=== PATIENT | female | born 1950 | race Caucasian/White ===

== ENCOUNTER → 2017-10-21 15:14 | Outpatient (CLI) | payer MEDICARE, OTHER, SELFPAY ==
--- NOTE | 2017-10-21 15:18 | XR_ITS ---
XR DEXA SCAN.-BONE DENSITY STUDY HIPS AND LUMBAR SPINE HISTORY: Postmenopausal [id number] female low calcium intake TECHNIQUE: DEXA scan hip and lumbar spine The most complete data summary and color graphic presentation of the today's ( and any prior ) DEXA findings are available in PACS. Definition and treatment guidelines included. COMPARISON: None listed LUMBAR SPINE: Normal bone density overall and at all levels L1 vertebral body demonstrates the lowest T score 0.8 with BMD1.228 g/cm sq Overall mean lumbar L1-L4 T score 2.2 with BMD1.442 g/cm sq . HIPS: Femoral neck density is best predictor of hip fracture risk . Left femoral neck demonstrates the lowest T score -1.3 with BMD0.86 g/cm sq . Right femoral neck T score is - 0.3 with BMD 0.992 Averaging all regions yields today's overall Hip Mean T score 0.8 with BMD1.114 g/cm sq ... IMPRESSION 1. LUMBAR SPINE: Normal density Normal bone density overall lumbar spine , as well as normal density at each individual vertebral body level 2. HIPS:-- Normal Overall normal bone density at hips as well as Normal bone density at femoral necks WHO criteria for post-menopausal, Women: Normal: T-score at or above -1 SD Osteopenia: T-score between -1 and -2.5 SD Osteoporosis: T-score at or below -2.5 SD
--- NOTE | 2017-10-21 15:18 | MM_ITS ---
MM Dig screening mamm BI w/CAD CAD Screening COMPARISON: None, we have been waiting for outside films from [facility] to arrive and if and when they do an addendum can be dictated INDICATION: There is no personal or family history of breast cancer TECHNIQUE: Standard CC and MLO images were obtained. R2 CAD reviewed. FINDINGS: Scattered fibroglandular densities are seen in the central portions of both breasts on a background of fatty breast parenchyma. There are couple benign-appearing calcifications in each breast. There is no suspicious lesion and no suspicious microcalcifications. IMPRESSION: Mild to moderate breast density with no suspicious lesion seen BI-RADS Category: 2 Benign Finding(s) RECOMMENDED FOLLOW-UP: 1YR - 1 YEAR FOLLOW-UP (A letter has been sent to the patient regarding results of the study.)
== END ==
PROVIDERS: Family Provider Radiology Diagnostic Radiology; PCP Family Medicine; Visit Provider Family Medicine
DX: Z12.31 Encounter for screening mammogram for malignant neoplasm of breast (principal); N60.19 Diffuse cystic mastopathy of unspecified breast; Z13.820 Encounter for screening for osteoporosis; M85.89 Other specified disorders of bone density and structure, multiple sites
CPT/HCPCS: 77067; 77080

== ENCOUNTER → 2018-07-15 07:16 | Outpatient (CLI) | payer MEDICARE, OTHER, SELFPAY ==
[2018-07-15 08:09] LABS: Cholesterol 239 mg/dL (140-200); HDL Cholesterol 121 mg/dL (29-89); LDL Cholesterol 103 mg/dL (0-130); Thyroid Stimulating Hormone 4.24 uIU/ml (0.358-3.740); Triglycerides 76 mg/dL (30-200); VLDL Cholesterol 15 mg/dL (0-40)
[2018-07-16 21:45] LABS: Vitamin B12 625 pg/mL (232-1245)
== END ==
PROVIDERS: Visit Provider Physician Assistant
DX: E78.5 Hyperlipidemia, unspecified (principal); E03.9 Hypothyroidism, unspecified; E53.8 Deficiency of other specified B group vitamins
CPT/HCPCS: 36415; 80061; 82607; 84443

== ENCOUNTER → 2018-09-20 07:30 | Outpatient (CLI) | payer MEDICARE, OTHER, SELFPAY ==
[2018-09-20 08:47] LABS: Thyroid Stimulating Hormone 3.17 uIU/ml (0.358-3.740)
== END ==
PROVIDERS: Visit Provider Physician Assistant
DX: E03.9 Hypothyroidism, unspecified (principal)
CPT/HCPCS: 36415; 84439; 84443

== ENCOUNTER → 2020-04-01 14:39 | Outpatient (CLI) | payer MEDICARE, OTHER, SELFPAY ==
--- NOTE | 2020-04-01 14:45 | XR_ITS ---
PROCEDURE: XR DEXA AXIAL SKELETON CLINICAL HISTORY: POSTMENOPAUSAL COMPARISON: LILO,TRUONG DEXAAX XR DEXA axial skeleton from 10/21/2017 FINDINGS: The right hip BMD is 0.833 with a T-score of -0.1. The left hip BMD is 0.795 with a T-score of -0.5. The lumbar spine BMD is 1.165 with a T-score of 1.1. The the patient was considered osteopenic with a T-score of -1.3 in the left femoral neck. Bone marrow density has improved. IMPRESSION: This patient is considered normal according to the World Health Organization criteria. Fracture risk is low. Based on these results a follow-up exam is recommended in 2 year. Dictated by: Chuy Harper MD 04/02/2020 11:34 Chuy Harper MD in [place] 04/02/2020 11:34
--- NOTE | 2020-04-01 14:45 | MM_ITS ---
PROCEDURE: MM DIG SCREENING MAMM BI W/CAD Digital Breast Tomosynthesis Included CLINICAL INDICATION: SCREENING There is no personal or family history of breast cancer. COMPARISON: MG [facility] MM Dig screening mamm BI w/CAD from 10/21/2017 TECHNIQUE: Standard CC and MLO images and 3D Tomosynthesis was obtained. R2 CAD reviewed. FINDINGS: There are couple of benign-appearing microcalcifications in each breast. There is a small benign-appearing nodular density just deep to the nipple left breast. There is a similar stable benign-appearing nodular density outer quadrant left breast and a similar appearing stable benign-appearing nodular density near the axillary tail right breast. There are couple of benign-appearing microcalcifications in each breast. There is no suspicious lesion and no suspicious microcalcifications. IMPRESSION: Fibrofatty parenchyma with no suspicious lesions seen BI-RAD Category: 2 Benign Finding(s) FOLLOW-UP: 1YR 1 Year Follow-up (A letter has been sent to the patient regarding results of the study.) Dictated by: Dr. Adolph Enciso MD 04/04/2020 08:38 Dr. Adolph Enciso MD in [place] 04/04/2020 08:38
== END ==
PROVIDERS: PCP Family Medicine; Visit Provider Physician Assistant
DX: Z12.31 Encounter for screening mammogram for malignant neoplasm of breast (principal); Z78.0 Asymptomatic menopausal state
CPT/HCPCS: 77063; 77067; 77080

== ENCOUNTER → 2021-07-16 09:53 | Outpatient (CLI) | payer MEDICARE, OTHER, SELFPAY ==
--- NOTE | 2021-07-16 09:57 | XR_ITS ---
PROCEDURE: XR CHEST PORTABLE CLINICAL HISTORY: COVID OUTPATIENT COMPARISON: No exams were available for comparison FINDINGS: The cardiomediastinal silhouette and pulmonary vascularity are within normal limits. The lungs are clear without infiltrates, suspicious nodules, or pleural effusions. No acute bony abnormalities. IMPRESSION: No acute findings. Dictated by: Chuy Harper MD 07/16/2021 11:11 Chuy Harper MD in [place] 07/16/2021 11:11
[2021-07-16 10:27] LABS: Adenovirus,PCR Not Detected (NotDetected); Bordetella Pertussis Not Detected (NotDetected); Chlamydophila Pneumoniae, PCR Not Detected (NotDetected); Coronavirus 19, PCR Not Detected (NotDetected); Coronavirus 229E Not Detected (NotDetected); Coronavirus NL63 Not Detected (NotDetected); Coronavirus OC43 Not Detected (NotDetected); Coronovirus HKU1,PCR Not Detected (NotDetected); Human Metapneumovirus Not Detected (NotDetected); Influenza A, PCR Not Detected (NotDetected); Influenza AH1, 2009 Not Detected (NotDetected); Influenza AH1, PCR Not Detected (NotDetected); Influenza AH3,PCR Not Detected (NotDetected); Influenza B, PCR Not Detected (NotDetected); Mycoplasma Pneumoniae, PCR Not Detected (NotDetected); Parainfluenza 1, PCR Not Detected (NotDetected); Parainfluenza 2, PCR Not Detected (NotDetected); Parainfluenza 3, PCR Not Detected (NotDetected); Parainfluenza 4, PCR Not Detected (NotDetected); Respiratory Syncytial Virus Not Detected (NotDetected); Rhinovirus/Enterovirus Not Detected (NotDetected)
[2021-07-16 10:32] LABS: Basophils # 0.2 K/mm3 (0-0.2); Basophils % 1.5 % (0.1-2.0); Eosinophils # 0.3 K/mm3 (0.0-0.4); Eosinophils % 2.8 % (0.1-12.0); Hematocrit 42.5 % (37.0-47.0); Hemoglobin 12.9 g/dL (12.2-16.2); Lymphocytes # 1.6 K/mm3 (0.7-4.5); Lymphocytes % 15.9 % (10-50); Mean Corpuscular HGB Conc 30.2 g/dL (31.8-35.4); Mean Corpuscular Volume 82.8 fl (81-99); Mean Platelet Volume 9.8 fl (7.4-10.4); Monocytes # 0.3 K/mm3 (0.1-1.0); Monocytes % 3.4 % (1.7-9.3); Neutrophils # 7.8 K/mm3 (1.8-7.8); Neutrophils % 76.4 % (37.0-80.0); Platelet Count 470 K/mm3 (142-424); Red Blood Count 5.14 M/mm3 (4.20-5.40); Red Cell Distribution Width 18.9 % (11.5-17.5); White Blood Count 10.2 K/mm3 (4.8-10.8)
== END ==
PROVIDERS: PCP Family Medicine; Visit Provider Physician Assistant
DX: Z20.822 Contact with and (suspected) exposure to COVID-19 (principal)
CPT/HCPCS: 36415; 71045; 85025; 87581; 87632; 87798; C9803; U0003; U0005

== ENCOUNTER 2021-07-21 07:36 | Emergency (ER) | payer MEDICARE, OTHER, SELFPAY ==
--- NOTE | 2021-07-21 07:36 | ECG_ITS ---
APPROVED REPORT Exam: Resting ECG HR:78 bpm ECG Measurements Heart Rate 78 AXES VT 158 P 55 QRSd 88 QRS 42 QT 384 T 63 QTc 437 Conclusion Sinus rhythm with occasional premature ventricular complexes Left atrial abnormality Borderline ECG Electronically signed by : Eulogio Allen MD 07/24/2021 14:37:01
[2021-07-21 07:42] VITALS: BP 169/90; PULSE 87; RESP 13; TEMP 36.9; O2SAT 97; BMI 36.6
--- NOTE | 2021-07-21 07:43 | XR_ITS ---
FINAL REPORT CLINICAL HISTORY: CP, cough FINDINGS: SINGLE VIEW CHEST. The heart is normal in size. The mediastinum is unremarkable. The lungs are a little underinflated. There is chronic scarring at the lung bases. There is no pneumothorax. IMPRESSION: No acute process. Reviewed, Interpreted and Dictated by Wilberto Mi MD Transcribed by Merissa Mcdonnell Authenticated by Wilberto Mi MD on 07/21/2021 08:46:37 AM [facility]
--- NOTE | 2021-07-21 07:48 | HMH.EDCP ---
ED Disposition Clinical Impression: Chest pain, URI (upper respiratory infection) Disposition: Home, Self-Care Condition on Discharge: Good Referrals: Jorge Mcgregor MD [Primary Care Provider] - - Critical Care Critical Care Time: No Attestation: On , the high probability of a clinically significant, sudden or life threatening deterioration of the following system(s) required my full and direct attention, intervention and personal management. The time I documented below is in addition to time spent performing reported procedures but includes the following listed in this critical care notation. Medical Decision Making - Maximino Inquiry Pt receiving controlled substance: No Vital Signs: 07/21/21 07:42 Temperature 98.4 F Temperature Source Oral Pulse Rate [Right Radial] 87 Respiratory Rate 13 Blood Pressure [Right Arm] 169/90 H Blood Pressure Mean [Right Arm] 116 Blood Pressure Source [Right Arm] Automatic Cuff Blood Pressure Position [Right Arm] Sitting 02 Sat by Pulse Oximetry 97 Oxygen Delivery Method Room Air - Lab Data Lab Results 07/21/21 07:40: WBC 8.9, RBC 5.15, Hgb 13.0, Hct 43.4, MCV 84.3, MCH 25.3 L, MCHC 30.0 L, RDW 18.9 H, Plt Count 448 H, MPV 10.7 H, Neut % (Auto) 75.0, Lymph % (Auto) 14.3, [place] % (Auto) 5.2, Eos % (Auto) 2.9, Baso % (Auto) 2.5 H, Neut # (Auto) 6.7, Lymph # (Auto) 1.3, [place] # (Auto) 0.5, Eos # (Auto) 0.3, Baso # (Auto) 0.2 07/21/21 07:40: Sodium 135 L, Potassium 3.7, Chloride 102, Carbon Dioxide 28, Anion Gap 8.7, BUN 11, Creatinine 0.70, Estimated Creat Clear 75, Estimated GFR 83, Est GFR ( Amer) 100, Glucose 188 H, Calcium 8.9, Troponin I < 0.01 07/21/21 07:40: SARS-CoV-2 (PCR) Not detected, Influenza A Untype (PCR) Not detected, Influenza Type B (PCR) Not detected Result diagrams: 07/21/21 07:40 07/21/21 07:40 Orders (Tests/Meds): ORDERS Category Date Time Status XR chest portable Stat Exams 07/21/21 07:43 Taken Troponin I Q3H Lab 07/21/21 10:45 Ordered Troponin I Q3H Lab 07/21/21 13:45 Ordered Medical Decision Narrative: 71 yo female w/ cad w/ cardiac stents, polycythemia vera, htn, presents for chest pain. Currently chest pain free in ED. States the chest pain mostly comes on with coughing, which has been occurring frequently for over 1 week, associated with fatigue, with recent close covid contacts. She looks well, is in NAD, on room air, afebrile. DDx includes but not limited URI, ACS, bronchitis, pneumonia. Will obtain labs including cbc, cmp, troponin, rapid covid/flu. EKG shows NSR without STEMI. Labs not acutely actionable, trop wnl. CXR ordered. No focal opacity seen on CXR. Patient only with mild similar chest pain with coughing here in ED. Chest pain completely resolves when she is not coughing, per self report. Remains HDS, well appearing, on room air. Stable for discharge. Given ED return precautions. Chest Pain HPI - General Stated Complaint: CP Time Seen by Provider: 07/21/21 07:48 Source of Information: Patient Limitations: No Limitations - History of Present Illness HPI narrative: 71 yo female w/ hx HTN, HLD, CAD s/p PCI on ASA, polycythemia vera, presents for chest pain. Patient reports she has bilateral upper chest pain that worsens when she coughs. States she has had nonproductive cough, fatigue since 07/13 for which she was evaluated in [facility] on 07/16. She states she tested negative for covid 19 and had negative CXR at that time (chart review shows negative comprehensive respiratory panel and negative CXR). She did not have chest pain at the time of that initial evaluations. States her symptoms improved over this past weekend but her cough returned and then she developed the chest pain for which she came into the ED today for. She states it only occurs when she coughs. She states she is concerned because she has cardiac issues and wants to make sure they are not the cause of her chest pain. She also notices so upper back pain when she c
[2021-07-21 07:52] LABS: Coronavirus 19, PCR Not Detected (NotDetected); Influenza A, PCR Not Detected (NotDetected); Influenza B, PCR Not Detected (NotDetected)
[2021-07-21 07:57] LABS: Basophils # 0.2 K/mm3 (0-0.2); Basophils % 2.5 % (0.1-2.0); Eosinophils # 0.3 K/mm3 (0.0-0.4); Eosinophils % 2.9 % (0.1-12.0); Hematocrit 43.4 % (37.0-47.0); Lymphocytes # 1.3 K/mm3 (0.7-4.5); Lymphocytes % 14.3 % (10-50); Mean Corpuscular Hemoglobin 25.3 pg (27.0-31.2); Mean Corpuscular Volume 84.3 fl (81-99); Mean Platelet Volume 10.7 fl (7.4-10.4); Monocytes # 0.5 K/mm3 (0.1-1.0); Monocytes % 5.2 % (1.7-9.3); Neutrophils # 6.7 K/mm3 (1.8-7.8); Platelet Count 448 K/mm3 (142-424); Red Blood Count 5.15 M/mm3 (4.20-5.40); Red Cell Distribution Width 18.9 % (11.5-17.5); White Blood Count 8.9 K/mm3 (4.8-10.8)
[2021-07-21 08:06] LABS: Anion Gap 8.7 mEq/L (5-15); Blood Urea Nitrogen 11 mg/dl (7-17); Calcium 8.9 mg/dl (8.4-10.2); Carbon Dioxide 28 mmol/L (22.0-30.0); Chloride 102 mmol/L (98-107); Creatinine Clearance Estimated 75 mL/min (50-200); Estimated Glomerular Filt Rate 83 ml/min (>60); GFR (African American) 100 ML/MIN (>60); Glucose 188 mg/dl (74-100); Potassium 3.7 mmoL/L (3.5-5.1); Sodium 135 mmol/L (136-145)
[2021-07-21 08:22] LABS: Troponin I < 0.01 ng/ml (0.00-0.034)
[2021-07-21 08:35] VITALS: BP 162/95; PULSE 79; RESP 18; TEMP 36.8; O2SAT 98
== END 2021-07-21 08:37 | disposition home or self-care (01) ==
PROVIDERS: Emergency Provider Student in an Organized Health Care Education/Training Program; PCP Family Medicine
DX: R07.9 Chest pain, unspecified (principal); J06.9 Acute upper respiratory infection, unspecified; I10 Essential (primary) hypertension; E78.5 Hyperlipidemia, unspecified; Z20.822 Contact with and (suspected) exposure to COVID-19
CPT/HCPCS: 71045; 80048; 84484; 85025; 93005; 99283; C9803; U0003; U0005

== ENCOUNTER → 2021-09-01 09:38 | Outpatient (CLI) | payer MEDICARE, OTHER, SELFPAY ==
--- NOTE | 2021-09-01 09:48 | XR_ITS ---
FINAL REPORT CLINICAL HISTORY: ABN CXR per patient. coughing since jul poss covid but never tested positive. COMPARISON: July 21, 2021 FINDINGS: Two views of the chest were obtained. The heart size and pulmonary vascularity are within normal limits. The mediastinum is normal. No acute pulmonary abnormality is identified. There is no pneumothorax. The bony thorax is intact. IMPRESSION: No active cardiopulmonary disease. Reviewed, Interpreted and Dictated by Topher Pendleton III, MD Transcribed by Lopez Wilson Authenticated by Topher Pendleton III, MD on 09/01/2021 11:31:57 AM [facility]
== END ==
PROVIDERS: PCP Family Medicine; Visit Provider Physician Assistant
DX: R93.89 Abnormal findings on diagnostic imaging of other specified body structures (principal)
CPT/HCPCS: 71046

== ENCOUNTER → 2021-12-09 13:09 | Outpatient (CLI) | payer MEDICARE, OTHER, SELFPAY ==
--- NOTE | 2021-12-09 13:14 | XR_ITS ---
FINAL REPORT CLINICAL HISTORY: foot pain FINDINGS: AP, oblique and lateral weight-bearing views of the left foot were obtained. There is no prior exam for comparison. There is no acute fracture or dislocation. There is mild multi joint degenerative disease most pronounced at the 1st MTP joint. Soft tissues are normal. IMPRESSION: Mild multi joint degenerative disease Reviewed, Interpreted and Dictated by Aby Blankenship MD Transcribed by Lopez Wilson Authenticated by Aby Blankenship MD on 12/09/2021 04:04:43 PM [facility]
--- NOTE | 2021-12-09 13:14 | XR_ITS ---
FINAL REPORT CLINICAL HISTORY: foot pain FINDINGS: AP, oblique and lateral weight-bearing views of the right foot were obtained. There is no prior exam for comparison. There is no acute fracture or dislocation. There is mild multi joint degenerative disease most pronounced at the 1st MTP joint. Soft tissues are normal. IMPRESSION: Mild multi joint degenerative disease. Reviewed, Interpreted and Dictated by Aby Blankenship MD Transcribed by Lopez Wilson Authenticated by Aby Blankenship MD on 12/09/2021 04:01:45 PM [facility]
== END ==
PROVIDERS: PCP Family Medicine; Visit Provider Podiatrist
DX: M79.672 Pain in left foot (principal); M79.671 Pain in right foot
CPT/HCPCS: 73630

== ENCOUNTER → 2021-12-10 14:11 | Outpatient (CLI) | payer MEDICARE, OTHER, SELFPAY ==
[2021-12-10 16:55] LABS: Alanine Aminotransferase 22 U/L (12-78); Albumin Level 3.8 g/dl (3.5-5.0); Albumin/Globulin Ratio 1.5 (1.1-1.8); Alkaline Phosphatase 118 U/L (38-126); Anion Gap 12.7 mEq/L (5-15); Aspartate Amino Transferase 32 U/L (14-36); Blood Urea Nitrogen 15 mg/dl (7-17); Calcium 9.8 mg/dl (8.4-10.2); Carbon Dioxide 28 mmol/L (22.0-30.0); Chloride 101 mmol/L (98-107); Estimated Glomerular Filt Rate 71 ml/min (>60); GFR (African American) 86 ML/MIN (>60); Globulin 2.6 g/dL (1.3-3.2); Glucose 140 mg/dl (74-100); Potassium 4.7 mmoL/L (3.5-5.1); Sodium 137 mmol/L (136-145); Total Protein,Serum 6.4 g/dl (6.3-8.2)
[2021-12-10 17:12] LABS: Free T4 (Free Thyroxine) 1.22 ng/dl (0.78-2.19)
[2021-12-10 17:26] LABS: Thyroid Stimulating Hormone 2.45 uIU/mL (0.465-4.68)
== END ==
PROVIDERS: Visit Provider Family Medicine
DX: I10 Essential (primary) hypertension (principal); E03.9 Hypothyroidism, unspecified
CPT/HCPCS: 36415; 80053; 84439; 84443

== ENCOUNTER 2021-12-11 11:17 | Emergency (ER) | payer MEDICARE, OTHER, SELFPAY ==
--- NOTE | 2021-12-11 11:33 | ECG_ITS ---
APPROVED REPORT Exam: Resting ECG HR:74 bpm ECG Measurements Heart Rate 74 AXES SC 162 P 35 QRSd 109 QRS 10 QT 365 T 25 QTc 393 Conclusion SINUS RHYTHM NORMAL ECG UNCONFIRMED REPORT Electronically signed by : Eulogio Allen MD 12/12/2021 09:51:03
[2021-12-11 11:35] VITALS: BP 163/84; PULSE 80; RESP 16; TEMP 36.6; O2SAT 98; BMI 35.8
[2021-12-11 11:41] LABS: POC Glucose,Bedside 229 (70-110)
--- NOTE | 2021-12-11 11:43 | XR_ITS ---
FINAL REPORT CLINICAL HISTORY: WEAKNESS, NEAR SYNCOPE FINDINGS: A portable view of the chest was obtained. Comparison is made to a prior exam dated September 01, 2021. Cardiac and mediastinal silhouettes are within normal limits. The lungs are clear. There is no pleural effusion or pneumothorax. IMPRESSION: No acute process on this portable exam. Reviewed, Interpreted and Dictated by Aby Blankenship MD Transcribed by Lopez Wilson Authenticated by Aby Blankenship MD on 12/11/2021 01:05:41 PM [facility]
--- NOTE | 2021-12-11 11:45 | CT_ITS ---
FINAL REPORT TECHNIQUE: Thin section axial images were obtained from skull base to vertex without contrast. CLINICAL HISTORY: DIZZINESS NEAR SYNCOPE FINDINGS: There is no mass effect or midline shift. There are periventricular hypodensities which are slightly greater than expected for age. There is no hemorrhage and no hydrocephalus. There is encephalomalacia involving the right parieto-occipital region. The posterior fossa is without acute abnormality. The basilar cisterns are preserved. The soft tissues are without acute abnormality. No acute osseous abnormality is identified. IMPRESSION: 1. No mass effect, midline shift or hemorrhage. 2. Periventricular hypodensities, favor chronic small vessel ischemia. If clinical concern persists, recommend MRI. Reviewed, Interpreted and Dictated by Aby Blankenship MD Transcribed by Merissa Mcdonnell Authenticated by Aby Blankenship MD on 12/11/2021 01:41:[address] [facility]
--- NOTE | 2021-12-11 11:46 | HMH.EDGENADL ---
ED Disposition Clinical Impression: Dizziness Disposition: Home, Self-Care Condition on Discharge: Good Referrals: Jorge Mcgregor MD [Primary Care Provider] - - Critical Care Critical Care Time: No Attestation: On 12/11/21, the high probability of a clinically significant, sudden or life threatening deterioration of the following system(s) required my full and direct attention, intervention and personal management. The time I documented below is in addition to time spent performing reported procedures but includes the following listed in this critical care notation. Medical Decision Making - Maximino Inquiry Pt receiving controlled substance: No Vital Signs: 12/11/21 11:35 12/11/21 12:30 Temperature 97.8 F Temperature Source Oral Pulse Rate 82 Pulse Rate [Radial] 80 Respiratory Rate 16 16 Blood Pressure 151/79 H Blood Pressure [Right Arm] 163/84 H Blood Pressure Mean [Right Arm] 110 Blood Pressure Position [Right Arm] Sitting 02 Sat by Pulse Oximetry 98 98 Oxygen Delivery Method Room Air Room Air - Lab Data Lab Results 12/11/21 11:27: POC Glucose 229 H 12/11/21 11:45: Urine Color Yellow, Urine Appearance Clear, Urine pH 5.5, Ur Specific [place] <= 1.005, Urine Protein Negative, Urine Glucose (UA) Trace, Urine Ketones Negative, Urine Blood Negative, Urine Nitrate Negative, Urine Bilirubin Negative, Urine Urobilinogen 0.2, Ur Leukocyte Esterase Negative, Urine RBC None, Urine WBC 3-5, Ur Squamous Epith Cells 5-10, Urine Bacteria 2+ 12/11/21 11:55: WBC 9.3, RBC 5.44 H, Hgb 14.4, Hct 45.2, MCV 83.1, MCH 26.4 L, MCHC 31.8, RDW 18.1 H, Plt Count 560 H, MPV 9.2, Neut % (Auto) 73.6, Lymph % (Auto) 17.0, [place] % (Auto) 4.3, Eos % (Auto) 3.3, Baso % (Auto) 1.6, Neut # (Auto) 6.8, Lymph # (Auto) 1.6, [place] # (Auto) 0.4, Eos # (Auto) 0.3, Baso # (Auto) 0.2 12/11/21 11:55: Sodium 134 L, Potassium 4.0, Chloride 101, Carbon Dioxide 27, Anion Gap 10.0, BUN 12, Creatinine 0.70, Estimated Creat Clear 73, Estimated GFR 83, Est GFR ( Amer) 100, Glucose 236 H D, Calcium 9.7, Total Bilirubin 0.9, AST 40 H, ALT 26, Alkaline Phosphatase 106, Troponin I < 0.01, Total Protein 6.4, Albumin 3.9, Globulin 2.5, Albumin/Globulin Ratio 1.6 Result diagrams: 12/11/21 11:55 12/11/21 11:55 Orders (Tests/Meds): ORDERS Category Date Time Status Troponin I Q3H Lab 12/11/21 14:45 Ordered Troponin I Q3H Lab 12/11/21 17:45 Ordered Urine Culture Stat Micro 12/11/21 11:45 Received Medical Decision Narrative: DDx includes but not limited to vagal presyncope, tia, ich, intracranial mass, electrolyte abnormality, arrhythmia, abnormal presentation of acs. hds, nad, well appearing, nonfocal neuro exam with gcs 15. vital signs stable with elevated sbp 160s. pt with resolved symptoms here. states she feels normal now. will obtain labs and imaging to further assess. ekg shows nsr without acute ischemic changes. Troponin wnl. Labs not acutely actionable. CTH without acute findings. Patient on reassessment remains asymptomatic, states she feels normal. Pt believes she needs adjustment of diuretic. Advised pt to f/u with PCP for recurrent symptoms in 3 days, which she is amenable to. Given strict ED return precautions. General Adult HPI - General Stated complaint: dizziness Time Seen by Provider: 12/11/21 11:35 Mode of Arrival: Ambulatory Limitations: No Limitations Description of Symptoms (Recalled from ER Triage Doc. 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 COWORKER TOOK HER BLOOD PRESSURE AND IT WAS 98/56 HR 80 20 MINUTES LATER B/P WAS 120/76 HR 80 PT STATES SHE WAS DIAPHORETIC. PT DENIES ANY LOC, HEAD INJURY, SOB, CHEST PAIN. PT STATES SHE HAS STARTED DIURETICS 3-4 WEEKS AGO. PT STATES FEELING BETTER NOW. BLOOD SUGAR 229. - History of Present Illness HPI narrative: 71-year-old female with a history of CAD status post PCI, polycythemia vera, h
[2021-12-11 12:07] LABS: Basophils # 0.2 K/mm3 (0-0.2); Basophils % 1.6 % (0.1-2.0); Chloride 101 mmol/L (98-107); Eosinophils # 0.3 K/mm3 (0.0-0.4); Eosinophils % 3.3 % (0.1-12.0); Hematocrit 45.2 % (37.0-47.0); Hemoglobin 14.4 g/dL (12.2-16.2); Lymphocytes # 1.6 K/mm3 (0.7-4.5); Mean Corpuscular HGB Conc 31.8 g/dL (31.8-35.4); Mean Corpuscular Hemoglobin 26.4 pg (27.0-31.2); Mean Corpuscular Volume 83.1 fl (81-99); Mean Platelet Volume 9.2 fl (7.4-10.4); Monocytes # 0.4 K/mm3 (0.1-1.0); Monocytes % 4.3 % (1.7-9.3); Neutrophils # 6.8 K/mm3 (1.8-7.8); Neutrophils % 73.6 % (37.0-80.0); Platelet Count 560 K/mm3 (142-424); Red Blood Count 5.44 M/mm3 (4.20-5.40); Red Cell Distribution Width 18.1 % (11.5-17.5); White Blood Count 9.3 K/mm3 (4.8-10.8)
[2021-12-11 12:08] LABS: Sodium 134 mmol/L (136-145)
[2021-12-11 12:11] LABS: Alanine Aminotransferase 26 U/L (12-78); Albumin Level 3.9 g/dl (3.5-5.0); Albumin/Globulin Ratio 1.6 (1.1-1.8); Alkaline Phosphatase 106 U/L (38-126); Aspartate Amino Transferase 40 U/L (14-36); Bilirubin,Total 0.9 mg/dl (0.2-1.3); Blood Urea Nitrogen 12 mg/dl (7-17); Calcium 9.7 mg/dl (8.4-10.2); Carbon Dioxide 27 mmol/L (22.0-30.0); Creatinine Clearance Estimated 73 mL/min (50-200); Estimated Glomerular Filt Rate 83 ml/min (>60); GFR (African American) 100 ML/MIN (>60); Globulin 2.5 g/dL (1.3-3.2); Glucose 236 mg/dl (74-100); Total Protein,Serum 6.4 g/dl (6.3-8.2)
[2021-12-11 12:23] LABS: Troponin I < 0.01 ng/ml (0.00-0.034)
[2021-12-11 12:30] VITALS: BP 151/79; PULSE 82; RESP 16; O2SAT 98
[2021-12-11 12:49] LABS: Microscopic, Urine URINE MICROSCOPIC (MICROSCOPIC)
[2021-12-11 12:56] LABS: Appearance,Urine CLEAR (Clear); Bilirubin,Urine Negative (Negative); Blood, Urine Negative (Negative); Color,Urine YELLOW (Yellow); Glucose,Urine (UA) TRACE (Negative); Ketones,Urine Negative (Negative); Leukocyte Esterase,Urine Negative (Negative); Nitrate,Urine Negative (Negative); PH,Urine 5.5 (5.0-8.5); Protein,Urine Negative (Negative); Specific Gravity, Urine <= 1.005 (1.005-1.030); Urobilinogen,Urine 0.2 EU/dl (0.2)
[2021-12-11 13:24] LABS: Bacteria,Urine 2+ /lpf
[2021-12-11 13:30] VITALS: BP 150/82; PULSE 78; RESP 17; O2SAT 98
[2021-12-11 14:29] VITALS: BP 144/80; PULSE 81; RESP 15; O2SAT 99
[2021-12-11 14:34] VITALS: BP 144/80; PULSE 81; RESP 15; TEMP 36.6; O2SAT 99
== END 2021-12-11 14:35 | disposition home or self-care (01) ==
PROVIDERS: Emergency Provider Student in an Organized Health Care Education/Training Program; PCP Family Medicine
DX: R42 Dizziness and giddiness (principal); R73.9 Hyperglycemia, unspecified; R82.90 Unspecified abnormal findings in urine; I25.10 Atherosclerotic heart disease of native coronary artery without angina pectoris; D75.1 Secondary polycythemia; I10 Essential (primary) hypertension; E66.9 Obesity, unspecified; Z68.35 Body mass index [BMI] 35.0-35.9, adult
CPT/HCPCS: 70450; 71045; 80053; 81001; 82962; 84484; 85025; 87086; 93005; 99284

== ENCOUNTER 2022-02-13 18:15 | Observation (INO) | payer MEDICARE, OTHER, SELFPAY ==
[2022-02-13] VITALS (12 sets, daily range): BP systolic 131–164; BP diastolic 64–89; PULSE 71–90; RESP 12–18; TEMP 36.6–37.2; O2SAT 93–98; BMI 33.8; BMI 35.6; BMI 36.2
--- NOTE | 2022-02-13 18:19 | ECG_ITS ---
APPROVED REPORT Exam: Resting ECG HR:81 bpm ECG Measurements Heart Rate 81 AXES VA 160 P 43 QRSd 97 QRS 22 QT 385 T 41 QTc 423 Conclusion SINUS RHYTHM Left atrial abnormality BORDERLINE ECG UNCONFIRMED REPORT Electronically signed by : Eulogio Allen MD 02/14/2022 08:00:39
--- NOTE | 2022-02-13 18:19 | XR_ITS ---
PROCEDURE INFORMATION: Exam: XR Chest Exam date and time: 02/13/2022 6:48 PM Age: 71 years old Clinical indication: Chest pressure; Patient HX: Chest pain TECHNIQUE: Imaging protocol: Radiologic exam of the chest. Views: 1 view. COMPARISON: CR XR CHEST PORTABLE 12/11/2021 12:10 PM FINDINGS: Lungs: Unremarkable. No consolidation. Pleural spaces: Unremarkable. No pleural effusion. No pneumothorax. Heart/Mediastinum: Unremarkable. No cardiomegaly. Bones/joints: Unremarkable. IMPRESSION: No acute findings.
[2022-02-13 18:42] LABS: Basophils # 0.3 K/mm3 (0-0.2); Basophils % 2.4 % (0.1-2.0); Eosinophils # 0.2 K/mm3 (0.0-0.4); Eosinophils % 1.9 % (0.1-12.0); Hematocrit 49.2 % (37.0-47.0); Hemoglobin 14.6 g/dL (12.2-16.2); Lymphocytes # 0.9 K/mm3 (0.7-4.5); Lymphocytes % 7.7 % (10-50); Mean Corpuscular HGB Conc 29.7 g/dL (31.8-35.4); Mean Corpuscular Volume 87.8 fl (81-99); Mean Platelet Volume 10.2 fl (7.4-10.4); Monocytes # 0.7 K/mm3 (0.1-1.0); Neutrophils # 9.8 K/mm3 (1.8-7.8); Platelet Count 551 K/mm3 (142-424); Red Blood Count 5.61 M/mm3 (4.20-5.40); Red Cell Distribution Width 18.8 % (11.5-17.5)
[2022-02-13 18:50] LABS: INR 1.06 (0.9-1.1); Prothrombin Time 11.9 seconds (10.1-12.5)
[2022-02-13 18:51] LABS: Lipase 291 U/L (23-300)
[2022-02-13 18:52] LABS: Alanine Aminotransferase 31 U/L (12-78); Albumin/Globulin Ratio 1.3 (1.1-1.8); Alkaline Phosphatase 175 U/L (38-126); Anion Gap 7.7 mEq/L (5-15); Aspartate Amino Transferase 45 U/L (14-36); Bilirubin,Total 1.1 mg/dl (0.2-1.3); Blood Urea Nitrogen 15 mg/dl (7-17); Calcium 9.3 mg/dl (8.4-10.2); Carbon Dioxide 28 mmol/L (22.0-30.0); Chloride 107 mmol/L (98-107); Creatinine Clearance Estimated 73 mL/min (50-200); Estimated Glomerular Filt Rate 83 ml/min (>60); GFR (African American) 100 ML/MIN (>60); Glucose 140 mg/dl (74-100); Potassium 3.7 mmoL/L (3.5-5.1); Sodium 139 mmol/L (136-145)
[2022-02-13 19:07] LABS: Troponin I < 0.01 ng/ml (0.00-0.034)
--- NOTE | 2022-02-13 19:11 | CT_ITS ---
PROCEDURE INFORMATION: Exam: CTA Chest With Contrast Exam date and time: 02/13/2022 7:27 PM Age: 71 years old Clinical indication: Sternal or substernal pain; Additional info: Acute chest pain TECHNIQUE: Imaging protocol: Computed tomographic angiography of the chest with contrast. 3D rendering (Not supervised by radiologist): MIP and/or 3D reconstructed images were created by the technologist. Radiation optimization: All CT scans at this facility use at least one of these dose optimization techniques: automated exposure control; mA and/or kV adjustment per patient size (includes targeted exams where dose is matched to clinical indication); or iterative reconstruction. Contrast material: ISOVUE 370; Contrast volume: 100 ml; Contrast route: INTRAVENOUS (IV); COMPARISON: CR XR CHEST PORTABLE 02/13/2022 6:48 PM FINDINGS: Pulmonary arteries: No evidence of pulmonary embolus. Aorta: Trace regions of atherosclerotic calcification involving the aortic arch. Lungs: Calcified granuloma right lung base. Pleural spaces: Unremarkable. No pneumothorax. No pleural effusion. Heart: Coronary artery calcification. Lymph nodes: Calcified hilar lymph nodes. Bones/joints: Unremarkable. No acute fracture. Soft tissues: Unremarkable. IMPRESSION: 1. No evidence of pulmonary embolus. 2. No evidence of acute abnormality.
--- NOTE | 2022-02-13 19:13 | CT_ITS ---
PROCEDURE INFORMATION: Exam: CTA Abdomen and Pelvis With Contrast Exam date and time: 02/13/2022 7:27 PM Age: 71 years old Clinical indication: Abdominal pain; Generalized; Prior surgery; Surgery date: 6+ months; Surgery type: Gb; Additional info: Chest pain and abdomen pain RO disection TECHNIQUE: Imaging protocol: Computed tomographic angiography of the abdomen and pelvis with contrast. 3D rendering (Not supervised by radiologist): MIP and/or 3D reconstructed images were created by the technologist. Radiation optimization: All CT scans at this facility use at least one of these dose optimization techniques: automated exposure control; mA and/or kV adjustment per patient size (includes targeted exams where dose is matched to clinical indication); or iterative reconstruction. Contrast material: ISOVUE 370; Contrast volume: 100 ml; Contrast route: INTRAVENOUS (IV); COMPARISON: ABDPELW/O CT ABD PELVIS W/O CONTRAST 10/13/2015 3:44 AM FINDINGS: Aorta: Minimal regions of atherosclerotic calcification in the abdominal aorta proximal to the aortic bifurcation with continuation into the common iliac arteries. No evidence of significant stenosis or dissection. 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 Renal arteries: No occlusion or significant stenosis. Right iliac arteries: No occlusion or significant stenosis. Left iliac arteries: No occlusion or significant stenosis. Liver: No mass. Gallbladder and bile ducts: Cholecystectomy. Pancreas: Unremarkable. No mass. No ductal dilation. Spleen: Splenomegaly. Adrenal glands: Unremarkable. No mass. Kidneys and ureters: Unremarkable. No solid mass. No hydronephrosis. Stomach and bowel: Stranding of the mesenteric fat in the region of the cecum and ascending colon. No normal appearing appendix is identified. Findings are suspicious for possible appendicitis. Appendix: See Stomach and bowel finding. Intraperitoneal space: See Stomach and bowel finding. Lymph nodes: Unremarkable. No enlarged lymph nodes. Urinary bladder: Unremarkable. No mass. Reproductive: Unremarkable as visualized. Bones/joints: See Celiac trunk and mesenteric arteries finding. Soft tissues: Unremarkable. Other findings: Study limited secondary to incomplete bowel opacification. Small amount of fluid in the pelvis. IMPRESSION: 1. Stranding of the mesenteric fat in the region of the cecum and ascending colon. No normal appearing appendix is identified. Findings are suspicious for possible appendicitis. 2. Minimal regions of atherosclerotic calcification in the abdominal aorta proximal to the aortic bifurcation with continuation into the common iliac arteries. No evidence of significant stenosis or dissection. 3. Splenomegaly. 4. 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
--- NOTE | 2022-02-13 19:14 | HMH.EDGENADL ---
ED Disposition Clinical Impression: Nausea & vomiting Qualifiers: Vomiting type: unspecified Qualified Code(s): R11.2 - Nausea with vomiting, unspecified Disposition: Admitted As Inpatient Condition on Discharge: Undetermined Instructions: DI for Acute Abdominal Pain Referrals: Jorge Mcgregor MD [Primary Care Provider] - Dion Devine MD [Staff Physician] - - Critical Care Critical Care Time: No Attestation: On 02/13/22, the high probability of a clinically significant, sudden or life threatening deterioration of the following system(s) required my full and direct attention, intervention and personal management. The time I documented below is in addition to time spent performing reported procedures but includes the following listed in this critical care notation. Medical Decision Making - Maximino Inquiry Pt receiving controlled substance: No Maximino was queried for this patient: No Vital Signs: 02/13/22 18:16 02/13/22 19:00 Temperature 98 F Temperature Source Oral Pulse Rate 83 Pulse Rate [Radial] 87 Respiratory Rate 16 14 Blood Pressure 157/89 H Blood Pressure [Right Arm] 151/89 H Blood Pressure Mean [Right Arm] 109 Blood Pressure Position [Right Arm] Sitting 02 Sat by Pulse Oximetry 98 95 Oxygen Delivery Method Room Air - Lab Data Lab Results 02/13/22 18:25: WBC 12.0 H, RBC 5.61 H, Hgb 14.6, Hct 49.2 H, MCV 87.8, MCH 26.0 L, MCHC 29.7 L, RDW 18.8 H, Plt Count 551 H, MPV 10.2, Neut % (Auto) 82.0 H, Lymph % (Auto) 7.7 L, [place] % (Auto) 6.0, Eos % (Auto) 1.9, Baso % (Auto) 2.4 H, Neut # (Auto) 9.8 H, Lymph # (Auto) 0.9, [place] # (Auto) 0.7, Eos # (Auto) 0.2, Baso # (Auto) 0.3 H 02/13/22 18:25: Sodium 139, Potassium 3.7, Chloride 107, Carbon Dioxide 28, Anion Gap 7.7, BUN 15, Creatinine 0.70, Estimated Creat Clear 73, Estimated GFR 83, Est GFR ( Amer) 100, Glucose 140 H, Calcium 9.3, Total Bilirubin 1.1, AST 45 H, ALT 31, Alkaline Phosphatase 175 H, Troponin I < 0.01, Total Protein 7.0, Albumin 4.0, Globulin 3.0, Albumin/Globulin Ratio 1.3 02/13/22 18:25: Lipase 291 02/13/22 18:25: PT 11.9, INR 1.06 Result diagrams: 02/13/22 18:25 02/13/22 18:25 Orders (Tests/Meds): ED MEDICATIONS Generic Name Dose Route Start Last Admin Trade Name Pamela PRN Reason Stop Dose Admin Acetaminophen 650 mg 02/13/22 21:15 Acetaminophen 325mg Tab PO 03/15/22 21:14 Q4HP PRN Fever or Mild Pain Piperacillin Sod/Tazobactam 100 mls @ 200 mls/hr 02/13/22 21:15 Sod 4.5 gm/ Sodium Chloride IV 02/27/22 21:14 Q8H MILAGROS Lactated Ringer's 1,000 mls @ 999 mls/hr 02/13/22 21:15 Lactated Ringer's 1000 Ml Bag IV 02/13/22 22:15 .Q1H1M MILAGROS Morphine Sulfate 4 mg 02/13/22 21:15 Morphine 4mg/Ml Syringe IV 03/15/22 21:14 Q4HP PRN Severe Pain Ondansetron HCl 4 mg 02/13/22 21:15 Ondansetron 4mg/2ml Vial IV 03/15/22 21:14 Q8HP PRN Nausea Discontinued Medications Generic Name Dose Route Start Last Admin Trade Name Pamela PRN Reason Stop Dose Admin Iopamidol 100 ml 02/13/22 19:40 02/13/22 19:42 Iopamidol-370 (76%);100ml Bottle IV 02/13/22 19:41 100 ml ONCE ONE Administration Morphine Sulfate 4 mg 02/13/22 20:41 Morphine 4mg/Ml Syringe IV 02/13/22 20:42 ONCE ONE Ondansetron HCl 4 mg 02/13/22 20:41 Ondansetron 4mg/2ml Vial IV 02/13/22 20:42 ONCE ONE Sodium Chloride 40 ml 02/13/22 19:40 02/13/22 19:42 0.9 % Sodium Chloride 50 Ml Vial IV 02/13/22 19:41 40 ml ONCE ONE Administration Sodium Chloride 10 ml 02/13/22 19:40 02/13/22 19:42 Sodium Chloride 0.9% 10ml Syr (Rad Only) IV 02/13/22 19:41 10 ml ONCE ONE Administration ORDERS Category Date Time Status Complete Blood Count Auto Diff AMLAB Lab 02/14/22 06:00 Ordered Comprehensive Metabolic Panel AMLAB Lab 02/14/22 06:00 Ordered Rapid PCR Covid and Flu A/B Stat Lab 02/13/22 21:17 Received Troponin I Q3H Lab 02/13/22 21:30 Order
--- NOTE | 2022-02-13 19:33 | PC.NURSE ---
Pt gone to RAD
--- NOTE | 2022-02-13 19:50 | PC.NURSE ---
Pt back from RAD
--- NOTE | 2022-02-13 21:09 | PC.NURSE ---
Dr. De Paz pagekat
--- NOTE | 2022-02-13 21:12 | PC.NURSE ---
speaking with Dr. De Paz
--- NOTE | 2022-02-13 21:20 | PC.NURSE ---
House notified of pt admission and need for bed assignment
[2022-02-13 21:21] LABS: Coronavirus 19, PCR Not Detected (NotDetected); Influenza A, PCR Not Detected (NotDetected); Influenza B, PCR Not Detected (NotDetected)
--- NOTE | 2022-02-13 22:41 | PC.NURSE ---
PT ARRIVED TO FLOOR VIA W/C FROM ED W/STAFF @ 1812
[2022-02-13 22:46] LABS: Troponin I < 0.01 ng/ml (0.00-0.034)
[2022-02-14] VITALS (10 sets, daily range): BP systolic 119–148; BP diastolic 56–83; PULSE 59–80; RESP 16–18; TEMP 36.7–37.1; O2SAT 92–99
--- NOTE | 2022-02-14 05:52 | PC.NURSE ---
Pt is alert and oriented x4, pt has not complained of pain since arriving to the floor. Pt ambulates to the restroom. Pt abdomen soft and tender, bowel sounds active. Pt O2 sat >90% on room air. Lung sounds are clear. Pt NPO as of midnight for consult to surgery. Pt has rested well, call cox in reach and working. Pt has received IV antibiotic per sep.
[2022-02-14 06:56] LABS: Basophils # 0.3 K/mm3 (0-0.2); Basophils % 2.5 % (0.1-2.0); Eosinophils # 0.2 K/mm3 (0.0-0.4); Eosinophils % 2.1 % (0.1-12.0); Hematocrit 42.8 % (37.0-47.0); Lymphocytes # 0.9 K/mm3 (0.7-4.5); Lymphocytes % 9.2 % (10-50); Mean Corpuscular HGB Conc 30.4 g/dL (31.8-35.4); Mean Corpuscular Hemoglobin 26.4 pg (27.0-31.2); Mean Corpuscular Volume 86.8 fl (81-99); Monocytes # 0.4 K/mm3 (0.1-1.0); Monocytes % 4.1 % (1.7-9.3); Neutrophils # 8.4 K/mm3 (1.8-7.8); Neutrophils % 82.1 % (37.0-80.0); Platelet Count 485 K/mm3 (142-424); Red Blood Count 4.93 M/mm3 (4.20-5.40); Red Cell Distribution Width 18.9 % (11.5-17.5); White Blood Count 10.2 K/mm3 (4.8-10.8)
[2022-02-14 07:00] LABS: Alanine Aminotransferase 36 U/L (12-78); Albumin Level 3.1 g/dl (3.5-5.0); Albumin/Globulin Ratio 1.2 (1.1-1.8); Alkaline Phosphatase 145 U/L (38-126); Anion Gap 4.4 mEq/L (5-15); Aspartate Amino Transferase 80 U/L (14-36); Bilirubin,Total 1.1 mg/dl (0.2-1.3); Blood Urea Nitrogen 13 mg/dl (7-17); Calcium 8.1 mg/dl (8.4-10.2); Carbon Dioxide 29 mmol/L (22.0-30.0); Chloride 109 mmol/L (98-107); Creatinine Clearance Estimated 74 mL/min (50-200); Estimated Glomerular Filt Rate 83 ml/min (>60); GFR (African American) 100 ML/MIN (>60); Globulin 2.5 g/dL (1.3-3.2); Glucose 119 mg/dl (74-100); Potassium 3.4 mmoL/L (3.5-5.1); Sodium 139 mmol/L (136-145); Total Protein,Serum 5.6 g/dl (6.3-8.2)
--- NOTE | 2022-02-14 07:36 | HMH.GSCON ---
*Admission Date: 02/13/22 *Reason for consult:: Abdominal pain, possible appendicitis. *History of present illness: Patient is a 71-year-old female with medical history of EDWARDS, portal venous thrombosis, cirrhosis, esophageal varices, history of coronary artery disease with stenting, who presented to the emergency department overnight with complaints of diffuse abdominal pain, some left upper quadrant pain, radiation into chest with associated nausea and vomiting. She does state that she had an episode of vomiting about 1 week ago. She states that while in her car she had acute onset of nausea and chest pain. She had radiation into her back and left shoulder. Evaluation in the emergency department revealed laboratory studies essentially near her baseline with very minimal leukocytosis. She has slightly above normal platelet count which is her baseline. She had some mild elevation of transaminase and alkaline phosphatase. She underwent CT angiogram. This revealed findings of stranding of the mesenteric fat in the region of the cecum and ascending colon. But no appendix was able to be identified and it was read as findings are suspicious for possible appendicitis. . She also had some atherosclerotic calcification of abdominal aorta and iliac arteries, splenomegaly, high-grade stenosis of the celiac trunk. Surgery was contacted by the emergency room physician regarding the possible appendicitis. Given the atypical presentation and findings on work-up not definitely definitive for acute appendicitis recommendations were for admission, observation, and surgical consultation. This morning the patient has some diffuse abdominal discomfort. Her white blood cell count has normalized. Review of Systems - Review of Systems Review of systems:: pertinent systems reviewed and negative unless documented below [facility] History I have reviewed the patient's past medical history: Yes Medical History: Reports:: Atherosclerotic Heart Disease, Cancer (blood cancer), Hyperlipidemia, Hypertension Denies:: Diabetes Mellitus Type 1, Diabetes Mellitus Type 2, MRSA *Have you ever received a pneumonia vaccine?: No *Have you received a flu vaccine this season?: No Other Medical History: Reports: Cataracts, Chemotherapy (chemo pill), Liver Disease, Thyroid Disease Laterality Cases: Bilateral: Carpal Tunnel Release Other Surgeries: Yes: Cholecystectomy Amputation: No Fractures: No - *Social History Last grade of school completed: High school graduate Smoking Status: Never smoker Alcohol Intake: never *Occupational Status:: employed Housing: apartment Household Members: none *Travel in the last 8 weeks: None Family Hx:: Diabetes Meds Home Medications Medication Instructions Recorded Confirmed Type aspirin 81 mg tablet,delayed 81 mg PO DAILY 12/15/21 02/13/22 History release cholecalciferol (vitamin D3) 50 50 mcg PO DAILY 12/15/21 02/13/22 History mcg (2,000 unit) tablet hydroxyurea 500 mg capsule 500 mg PO HS cap 12/15/21 02/13/22 History levothyroxine 88 mcg tablet 88 mcg PO DAILY tab 12/15/21 02/13/22 History metoprolol succinate 25 mg 25 tab PO DAILY 12/15/21 02/13/22 History tablet,extended release 24 hr nitroglycerin 0.4 mg sublingual 0.4 mg BUCCAL TIDP PRN tab 12/15/21 02/13/22 History tablet Allergies Allergy/AdvReac Type Severity Reaction Status Date / Time No Known Allergies Allergy Verified 12/15/21 09:02 Exam Vital signs and Labs for Last 24 Hours: Temp Pulse Resp BP Pulse Ox 98.1 F 65 16 127/59 L 95 02/14/22 03:53 02/14/22 04:00 02/14/22 03:53 02/14/22 03:53 02/14/22 03:53 Laboratory Results - last 24 hr 02/13/22 18:25: WBC 12.0 H, RBC 5.61 H, Hgb 14.6, Hct 49.2 H, MCV 87.8, MCH 26.0 L, MCHC 29.7 L, RDW 18.8 H, Plt Count 551 H, MPV 10.2, Neut % (Auto) 82.0 H, Lymph % (Auto) 7.7 L, [place] % (Auto) 6.0, Eos % (Auto) 1.9, Baso % (Auto) 2.4 H, Neut # (Auto) 9.8 H, Lymph # (Auto) 0.9, [place] # (Auto) 0.7, E
--- NOTE | 2022-02-14 08:04 | CT_ITS ---
PROCEDURE INFORMATION: Exam: CT Abdomen And Pelvis Without Contrast Exam date and time: 02/14/2022 11:11 AM Age: 71 years old Clinical indication: Abdominal pain; Acute; Additional info: Diffuse abd pain, abnl cecum on cta- oral contrast only TECHNIQUE: Imaging protocol: Computed tomography of the abdomen and pelvis without contrast. Radiation optimization: All CT scans at this facility use at least one of these dose optimization techniques: automated exposure control; mA and/or kV adjustment per patient size (includes targeted exams where dose is matched to clinical indication); or iterative reconstruction. Other contrast: Oral, gastrograffin , 60ml ; COMPARISON: CT ANGIO ABDOMEN PELVIS 02/13/2022 7:27 PM FINDINGS: Lungs: Dependent atelectasis and scarring. Lung bases are negative for dominant mass or airspace consolidation. Subcentimeter calcified granuloma right lower lobe lung. Heart: Heart is enlarged. Coronary artery calcifications are present. Diaphragm: Sliding hiatal hernia. Liver: Normal. No mass. Gallbladder and bile ducts: Gallbladder is surgically absent. No pathologic dilation of the biliary tree. Pancreas: Normal. No ductal dilation. Spleen: Spleen is massively enlarged measuring 13.7 cm in craniocaudal and 17.8 cm in anterior to posterior dimensions. Punctate calcified granulomas are identified within the spleen. Adrenal glands: Normal. No mass. Kidneys and ureters: Tiny amount of residual contrast within the renal collecting systems and ureters. Stomach and bowel: Inflammatory changes in the area of the cecum and ascending colon do not appear to be centered around the appendix. Severe mucosal thickening of loops of small bowel within the mid abdomen suspicious for underlying enteritis. Mucosal thickening of the stomach is probably needed on distension. Gastritis or neoplasm could have a similar appearance. Follow-up with endoscopy or double-contrast fluoroscopic studies recommended. Appendix: There is now contrast within the appendix. The appendix is normal in caliber. Intraperitoneal space: Small amount of free fluid in the pelvis. Vasculature: There are minimal calcifications of aorta and its branches. Lymph nodes: Unremarkable. No enlarged lymph nodes. Urinary bladder: Unremarkable as visualized. Reproductive: Unremarkable as visualized. Bones/joints: Diffuse degenerative disc and facet disease result in multilevel central and foraminal stenosis within the lower lumbar spine. Osteophytosis and eburnation of the sacroiliac joints and hips. Soft tissues: Unremarkable. IMPRESSION: 1. There is now contrast within the appendix. The appendix is normal in caliber. 2. Inflammatory changes in the area of the cecum and ascending colon do not appear to be centered around the appendix. 3. Severe mucosal thickening of loops of small bowel within the mid abdomen suspicious for enteritis, inflammation or other underlying process. 4. Cardiomegaly. 5. Hiatal hernia. 6. Mucosal thickening of the stomach is probably under distension. Gastritis or neoplasm could have a similar appearance. Follow-up with endoscopy or double-contrast fluoroscopic studies recommended. 7. Spleen is massively enlarged measuring 13.7 cm in craniocaudal and 17.8 cm in anterior to posterior dimensions. Punctate calcified granulomas are identified within the spleen. 8. Gallbladder is surgically absent. No pathologic dilation of the biliary tree. 9. Small amount of free fluid in the pelvis. 10. Diffuse degenerative disc and facet disease result in multilevel central and foraminal stenosis within the lower lumbar spine. 11. Atherosclerotic vascular di
--- NOTE | 2022-02-14 08:44 | HMH.ITSTN ---
Spoke to nurse notes indicate Dr wanted oral gastrograffin contrast-- had CTA abd last night in ER-- taking up oral contrast now nurse to call when finished and we will scan 2 hours after
--- NOTE | 2022-02-14 11:40 | P.CONPHA_ITS ---
[facility] Pharmacy VTE Monitoring - Patient Demographics Admission date: 02/14/22 Report Date: 02/14/22 Time: 11:40 Allergies/Adverse Reactions: Patient Allergies No Known Allergies Allergy (Verified 12/15/21 09:02) Height: 1.57 m Weight: 89.358 kg Patient Problems: Current Active Problems Nausea & vomiting (Acute) - VTE Risk Labs: VTE Related Lab Results Hgb 13.0 g/dL (12.2-16.2) D 02/14/22 06:09 Hct 42.8 % (37.0-47.0) 02/14/22 06:09 Plt Count 485 K/mm3 (142-424) H 02/14/22 06:09 PT 11.9 seconds (10.1-12.5) 02/13/22 18:25 INR 1.06 (0.9-1.1) 02/13/22 18:25 BUN 13 mg/dl (7-17) 02/14/22 06:09 Creatinine 0.70 mg/dl (0.52-1.04) 02/14/22 06:09 Estimated Creat Clear 74 mL/min (50-200) 02/14/22 06:09 VTE Score: 8 VTE Risk Level: Moderate Risk - Prophylaxis Types of VTE Prophylaxis: TEDS Knee High Location of Applied Device: Bilateral Lower Extremeties (SHAMEKA HOSE ORDERED)
--- NOTE | 2022-02-14 13:23 | HMH.HP ---
*Admission Date: 02/14/22 *Chief complaint: Abdominal pain *History of present illness: This 71-year-old white female presented in the emergency room yesterday evening with acute onset of abdominal pain. She had nausea and vomiting. There was initial concern for appendicitis. This was questioned on the initial CT scan though the appendix was not well visualized. On a follow-up scan this morning the appendix was found to be normal. The patient was seen initially by Dr. Topher Mcelroy and the following is his narrative from his surgical consult: Patient is a 71-year-old female with medical history of EDWARDS, portal venous thrombosis, cirrhosis, esophageal varices, history of coronary artery disease with stenting, who presented to the emergency department overnight with complaints of diffuse abdominal pain, some left upper quadrant pain, radiation into chest with associated nausea and vomiting. She does state that she had an episode of vomiting about 1 week ago. She states that while in her car she had acute onset of nausea and chest pain. She had radiation into her back and left shoulder. Evaluation in the emergency department revealed laboratory studies essentially near her baseline with very minimal leukocytosis. She has slightly above normal platelet count which is her baseline. She had some mild elevation of transaminase and alkaline phosphatase. She underwent CT angiogram. This revealed findings of stranding of the mesenteric fat in the region of the cecum and ascending colon. But no appendix was able to be identified and it was read as findings are suspicious for possible appendicitis. . She also had some atherosclerotic calcification of abdominal aorta and iliac arteries, splenomegaly, high-grade stenosis of the celiac trunk. Surgery was contacted by the emergency room physician regarding the possible appendicitis. Given the atypical presentation and findings on work-up not definitely definitive for acute appendicitis recommendations were for admission, observation, and surgical consultation. This morning the patient has some diffuse abdominal discomfort. Her white blood cell count has normalized. In addition to the above information and assessment by Dr. Mcelroy, I would mention that the patient has polycythemia vera and is followed for this at . She takes hydroxyurea. She has had documented splenomegaly and indeed massive splenomegaly is noted on her CT scans at this admission. Despite the history of portal vein thrombosis she only takes a baby aspirin each day. The patient mentions that 2 weeks ago she had a similar episode of sudden onset abdominal pain that was relieved after she vomited. She states that her recent bowel movements have been basically normal, though she may have some bright red blood on the toilet tissue which she thinks is related to hemorrhoids. In her family history she relates that her mother from gastrointestinal hemorrhage. [facility] History Medical History: Reports:: Atherosclerotic Heart Disease, Cancer (blood cancer), Hyperlipidemia, Hypertension Denies:: Diabetes Mellitus Type 1, Diabetes Mellitus Type 2, MRSA *Have you ever received a pneumonia vaccine?: No *Have you received a flu vaccine this season?: No Other Medical History: Reports: Cataracts, Chemotherapy (chemo pill), Liver Disease, Thyroid Disease Laterality Cases: Bilateral: Carpal Tunnel Release Other Surgeries: Yes: Cholecystectomy Amputation: No Fractures: No - *Social History Last grade of school completed: High school graduate Smoking Status: Never smoker Alcohol Intake: never *Occupational Status:: employed Housing: apartment Household Members: none *Travel in the last 8 weeks: None Family Hx:: Diabetes Review of Systems - Constitutional Denies anorexia, Denies body ache(s), Denies chills, Denies fatigue, Denies fever(s) - Eyes Denies change in vision - ENT Denies abnormal hearing, Denies bleeding gums, Denies lip swelling -
[2022-02-14 15:26] LABS: Thyroid Stimulating Hormone 2.89 uIU/mL (0.465-4.68)
--- NOTE | 2022-02-14 18:16 | PC.NURSE ---
Pt a/o x4. RR even and unlabored. No changes since prior assessment. Pt was ordered a clear liquid diet this shift. Has tolerated without any c/o's. Pt denies pain. VSS. CB in reach and family has been in to see patient as well.
[2022-02-15] VITALS: PULSE 69
[2022-02-15 04:00] VITALS: BP 142/55; PULSE 66; RESP 18; TEMP 37.1; O2SAT 95
[2022-02-15 04:28] VITALS: BMI 37.0
--- NOTE | 2022-02-15 05:03 | PC.NURSE ---
Addendum entered by Fabiola Upton RN 02/15/22 06:53: pt has had a couple of episodes of diarrhea. Dr. Mcelroy came to see pt this AM. Ordered stool panel. Sample sent to lab. Original Note: Pt alert and oriented x 4. Pt has had no c/o of abd pain or nausea thus far during my shift, but says she had 1 episode of diarrhea. No other complaints voiced. Pts ABD is soft, tender. BS active x 4. Pt has rested well. NSR/sinus arrhythmia on tele. Tolerating clear liquid diet well. No other needs voiced at this time. Call light in reach.
[2022-02-15 06:07] LABS: Basophils # 0.1 K/mm3 (0-0.2); Basophils % 1.4 % (0.1-2.0); Eosinophils # 0.3 K/mm3 (0.0-0.4); Eosinophils % 2.4 % (0.1-12.0); Hematocrit 43.4 % (37.0-47.0); Hemoglobin 12.9 g/dL (12.2-16.2); Lymphocytes % 9.8 % (10-50); Mean Corpuscular HGB Conc 29.7 g/dL (31.8-35.4); Mean Corpuscular Hemoglobin 26.2 pg (27.0-31.2); Mean Corpuscular Volume 88.3 fl (81-99); Mean Platelet Volume 10.8 fl (7.4-10.4); Monocytes # 0.4 K/mm3 (0.1-1.0); Monocytes % 3.8 % (1.7-9.3); Neutrophils # 8.5 K/mm3 (1.8-7.8); Neutrophils % 82.6 % (37.0-80.0); Platelet Count 419 K/mm3 (142-424); Red Blood Count 4.91 M/mm3 (4.20-5.40); Red Cell Distribution Width 19.1 % (11.5-17.5); White Blood Count 10.3 K/mm3 (4.8-10.8)
[2022-02-15 06:20] LABS: Chloride 109 mmol/L (98-107); Sodium 139 mmol/L (136-145)
--- NOTE | 2022-02-15 06:20 | HMH.GSPN ---
Subjective Narrative: Patient denies significant abdominal pain. She has had some minimal cramping. Her CT scan with oral contrast yesterday revealed normal appendix with contrast. There were inflammatory changes in the area of the cecum and ascending colon not related to the appendix. There was severe mucosal thickening of loops of small bowel within the mid abdomen suspicious for enteritis, inflammation, or other underlying process. Other findings were noted. She has been having diarrhea. Progress Note: A&P (1) Abdominal pain Status: Acute (2) Nausea & vomiting Status: Acute (3) Celiac artery stenosis Status: Acute (4) Polycythemia vera Status: Acute (5) EDWARDS (nonalcoholic steatohepatitis) Status: Acute (6) Chest pain Status: Acute (7) History of coronary artery disease Status: Acute Assessment and Plan for All Diagnoses:: Patient does not have appendicitis. She may have enterocolitis based on the CT findings and diarrhea. I will order stool diarrhea panel. However, given her prior history of EDWARDS with cirrhosis and history of portal vein thrombosis along with the findings on CT angiogram of the abdomen severe stenosis of the celiac it may be appropriate to discuss the case with [facility] surgery for possible additional management and consideration of anticoagulation. Exam Vital signs and Labs for Last 24 Hours: Temp Pulse Resp BP Pulse Ox 98.7 F 66 18 142/55 H 95 02/15/22 04:00 02/15/22 04:00 02/15/22 04:00 02/15/22 04:00 02/15/22 04:00 Laboratory Results - last 24 hr 02/14/22 06:09: WBC 10.2, RBC 4.93, Hgb 13.0 D, Hct 42.8, MCV 86.8, MCH 26.4 L, MCHC 30.4 L, RDW 18.9 H, Plt Count 485 H, MPV 10.0, Neut % (Auto) 82.1 H, Lymph % (Auto) 9.2 L, [place] % (Auto) 4.1, Eos % (Auto) 2.1, Baso % (Auto) 2.5 H, Neut # (Auto) 8.4 H, Lymph # (Auto) 0.9, [place] # (Auto) 0.4, Eos # (Auto) 0.2, Baso # (Auto) 0.3 H 02/14/22 06:09: Sodium 139, Potassium 3.4 L, Chloride 109 H, Carbon Dioxide 29, Anion Gap 4.4 L, BUN 13, Creatinine 0.70, Estimated Creat Clear 74, Estimated GFR 83, Est GFR ( Amer) 100, Glucose 119 H, Calcium 8.1 L, Total Bilirubin 1.1, AST 80 H D, ALT 36, Alkaline Phosphatase 145 H, Total Protein 5.6 L, Albumin 3.1 L D, Globulin 2.5, Albumin/Globulin Ratio 1.2 02/14/22 14:14: TSH 2.89 02/15/22 05:55: WBC 10.3, RBC 4.91, Hgb 12.9, Hct 43.4, MCV 88.3, MCH 26.2 L, MCHC 29.7 L, RDW 19.1 H, Plt Count 419, MPV 10.8 H, Neut % (Auto) 82.6 H, Lymph % (Auto) 9.8 L, [place] % (Auto) 3.8, Eos % (Auto) 2.4, Baso % (Auto) 1.4, Neut # (Auto) 8.5 H, Lymph # (Auto) 1.0, [place] # (Auto) 0.4, Eos # (Auto) 0.3, Baso # (Auto) 0.1 I & O for Last 24 hours: Intake & Output 02/12/22 02/13/22 02/14/22 02/15/22 11:59 11:59 11:59 11:59 Intake Total 200 / 200 720 / 720 Output Total 0 / 0 Balance 200 / 200 720 / 720 Weight 197 lb 201 lb 1 oz - *Routine Abdominal Exam Present: soft. Absent: tenderness
[2022-02-15 06:22] LABS: Alanine Aminotransferase 32 U/L (12-78); Aspartate Amino Transferase 51 U/L (14-36); Blood Urea Nitrogen 11 mg/dl (7-17); Creatinine Clearance Estimated 75 mL/min (50-200); Estimated Glomerular Filt Rate 83 ml/min (>60); GFR (African American) 100 ML/MIN (>60)
[2022-02-15 06:23] LABS: Albumin Level 3.3 g/dl (3.5-5.0); Albumin/Globulin Ratio 1.2 (1.1-1.8); Alkaline Phosphatase 137 U/L (38-126); Bilirubin,Total 1.4 mg/dl (0.2-1.3); Calcium 8.5 mg/dl (8.4-10.2); Carbon Dioxide 29 mmol/L (22.0-30.0); Globulin 2.8 g/dL (1.3-3.2); Glucose 143 mg/dl (74-100); Total Protein,Serum 6.1 g/dl (6.3-8.2)
[2022-02-15 06:38] LABS: Adenovirus F 40/41, stool Not Detected (NotDetected); Astrovirus Not Detected (NotDetected); Campylobacter Not Detected (NotDetected); Clostridium Difficile A/B, PCR Not Detected (NotDetected); Cryptosporidium Not Detected (NotDetected); Cyclospora Cayetanesis Not Detected (NotDetected); Entamoeba histolytica Not Detected (NotDetected); Enteroaggregative E coli Not Detected (NotDetected); Enteropathogenic E coli Not Detected (NotDetected); Enterotoxigenic E coli Not Detected (NotDetected); Giardia lamblia Not Detected (NotDetected); Norovirus Not Detected (NotDetected); Plesimonas Shigalloides, PCR Not Detected (NotDetected); Rotavirus A Not Detected (NotDetected); Salmonella, PCR Not Detected (NotDetected); Sapovirus Not Detected (NotDetected); Shiga-like toxin E coli Not Detected (NotDetected); Shigella Enterovasive E coli Not Detected (NotDetected); Vibrio Cholerae Not Detected (NotDetected); Vibrio, PCR Not Detected (NotDetected); Yersinia Entercolitica, PCR Not Detected (NotDetected)
[2022-02-15 08:00] VITALS: BP 120/63; PULSE 70; RESP 14; TEMP 36.9; O2SAT 98
--- NOTE | 2022-02-15 08:47 | HMH.ACPN2 ---
Internal Medicine - PN: Subj *Date: 02/15/22 *Time: 08:47 Interval history: This morning she complains of diarrhea stools x8. She is not having abdominal pain. Exam Vital signs and Labs for Last 24 Hours: Temp Pulse Resp BP Pulse Ox 98.5 F 70 14 120/63 98 02/15/22 08:00 02/15/22 08:00 02/15/22 08:00 02/15/22 08:00 02/15/22 08:00 Laboratory Results - last 24 hr 02/14/22 14:14: TSH 2.89 02/15/22 05:55: WBC 10.3, RBC 4.91, Hgb 12.9, Hct 43.4, MCV 88.3, MCH 26.2 L, MCHC 29.7 L, RDW 19.1 H, Plt Count 419, MPV 10.8 H, Neut % (Auto) 82.6 H, Lymph % (Auto) 9.8 L, Curry % (Auto) 3.8, Eos % (Auto) 2.4, Baso % (Auto) 1.4, Neut # (Auto) 8.5 H, Lymph # (Auto) 1.0, Curry # (Auto) 0.4, Eos # (Auto) 0.3, Baso # (Auto) 0.1 02/15/22 05:55: Sodium 139, Potassium 4.0, Chloride 109 H, Carbon Dioxide 29, Anion Gap 5.0, BUN 11, Creatinine 0.70, Estimated Creat Clear 75, Estimated GFR 83, Est GFR ( Amer) 100, Glucose 143 H D, Calcium 8.5, Total Bilirubin 1.4 H, AST 51 H D, ALT 32, Alkaline Phosphatase 137 H, Total Protein 6.1 L, Albumin 3.3 L, Globulin 2.8, Albumin/Globulin Ratio 1.2 I & O for Last 24 hours: Intake & Output 02/12/22 02/13/22 02/14/22 02/15/22 11:59 11:59 11:59 11:59 Intake Total 200 / 200 1280 / 1280 Output Total 0 / 0 Balance 200 / 200 1280 / 1280 Weight 197 lb 201 lb 1 oz - Constitutional no acute distress - *Routine HEENT Exam Head: Present: normocephalic Eye: Present: EOMI, PERRL ENT: Present: mucous membranes moist - *Routine Neck Exam Present: supple. Absent: lymphadenopathy - *Routine Respiratory Exam Present: CTA bilaterally - *Routine Cardiovascular Exam Present: RRR - *Routine Abdominal Exam Present: soft, normoactive bowel sounds (Actually a little hyper). Absent: tenderness, mass - *Routine Extremities Exam Present: edema (Minimal). Absent: cyanosis, clubbing - *Routine Skin Exam Present: warm. Absent: lesions, rash - *Routine Neurological Exam Present: alert, oriented X3 Assessment and Plan (1) Abdominal pain Status: Acute Category: Medical Code(s): R10.9 - Unspecified abdominal pain (2) Nausea & vomiting Status: Acute Qualifiers: Vomiting type: unspecified Qualified Code(s): R11.2 - Nausea with vomiting, unspecified Category: Medical Code(s): R11.2 - Nausea with vomiting, unspecified (3) Celiac artery stenosis Status: Acute Category: Medical Code(s): I77.1 - Stricture of artery (4) Polycythemia vera Status: Acute Category: Medical Code(s): D45 - Polycythemia vera (5) EDWARDS (nonalcoholic steatohepatitis) Status: Acute Category: Medical Code(s): K75.81 - Nonalcoholic steatohepatitis (EDWARDS) (6) Chest pain Status: Acute Category: Medical Code(s): R07.9 - Chest pain, unspecified (7) History of coronary artery disease Status: Acute Category: Medical Code(s): Z86.79 - Personal history of other diseases of the circulatory system (8) Diarrhea Status: Acute Category: Medical Code(s): R19.7 - Diarrhea, unspecified - Assessment and plan all Dx Assessment and Plan for all problems:: Stool PCR has been obtained this morning. Likely we can discharge her today. I am going to fax her information to vascular surgery at . We will see if we can schedule her an appointment down there.
[2022-02-15 15:45] VITALS: BP 142/72; PULSE 60; RESP 14; TEMP 36.9; O2SAT 97
--- NOTE | 2022-02-15 22:04 | HMH.DCSUM ---
General - General Admission date:: 02/13/22 Discharge date: 02/15/22 HPI HPI: This 71-year-old white female presented in the emergency room yesterday evening with acute onset of abdominal pain. She had nausea and vomiting. There was initial concern for appendicitis. This was questioned on the initial CT scan though the appendix was not well visualized. On a follow-up scan this morning the appendix was found to be normal. The patient was seen initially by Dr. Topher Mcelroy and the following is his narrative from his surgical consult: Patient is a 71-year-old female with medical history of LAMB, portal venous thrombosis, cirrhosis, esophageal varices, history of coronary artery disease with stenting, who presented to the emergency department overnight with complaints of diffuse abdominal pain, some left upper quadrant pain, radiation into chest with associated nausea and vomiting. She does state that she had an episode of vomiting about 1 week ago. She states that while in her car she had acute onset of nausea and chest pain. She had radiation into her back and left shoulder. Evaluation in the emergency department revealed laboratory studies essentially near her baseline with very minimal leukocytosis. She has slightly above normal platelet count which is her baseline. She had some mild elevation of transaminase and alkaline phosphatase. She underwent CT angiogram. This revealed findings of stranding of the mesenteric fat in the region of the cecum and ascending colon. But no appendix was able to be identified and it was read as findings are suspicious for possible appendicitis. . She also had some atherosclerotic calcification of abdominal aorta and iliac arteries, splenomegaly, high-grade stenosis of the celiac trunk. Surgery was contacted by the emergency room physician regarding the possible appendicitis. Given the atypical presentation and findings on work-up not definitely definitive for acute appendicitis recommendations were for admission, observation, and surgical consultation. This morning the patient has some diffuse abdominal discomfort. Her white blood cell count has normalized. In addition to the above information and assessment by Dr. Mcelroy, I would mention that the patient has polycythemia vera and is followed for this at . She takes hydroxyurea. She has had documented splenomegaly and indeed massive splenomegaly is noted on her CT scans at this admission. Despite the history of portal vein thrombosis she only takes a baby aspirin each day. The patient mentions that 2 weeks ago she had a similar episode of sudden onset abdominal pain that was relieved after she vomited. She states that her recent bowel movements have been basically normal, though she may have some bright red blood on the toilet tissue which she thinks is related to hemorrhoids. In her family history she relates that her mother from gastrointestinal hemorrhage. Hospital Course Hospital Course: The patient was admitted and Dr. Mcgregor did speak with Dr. Mcelroy. He felt the patient would need to be kept overnight for monitoring of additional episodes of abdominal pain, nausea, or vomiting. He had concerns about celiac artery stenosis. Dr. Mcelroy did see her in consultation. He felt she did not have appendicitis, but may have enterocolitis based on the CT findings and the diarrhea. He ordered a stool panel. He felt given her history of Lamb and cirrhosis along with portal vein thrombosis and the finding on CT angiogram of the abdomen with severe stenosis of the celiac, it would be appropriate to discuss the case with vascular surgery for possible additional management and consideration of anticoagulation. By 02/15/2022, she was still having diarrhea, but was no longer having abdominal pain. Her diarrhea panel was negative. It was felt she could be discharged home and her information would be faxed to vascular surgery at so an appointment could
--- NOTE | 2022-02-16 15:11 | CARE MANAGER ---
Called and spoke with patient regarding post discharge status. Patient states that plans to call Dr. Mcgregor's office to schedule a f/u appt. She states that he is feeling better and has no issues at this time.
== END 2022-02-15 17:51 | disposition home or self-care (01) ==
LOC: ER 21:25 → 2ND 21:43
PROVIDERS: Surgery; Admitting Provider Family Medicine; Emergency Provider Student in an Organized Health Care Education/Training Program; PCP Family Medicine; Visit Provider Family Medicine
DX: K75.81 Nonalcoholic steatohepatitis (NASH) (principal); D45 Polycythemia vera; I77.4 Celiac artery compression syndrome; R16.1 Splenomegaly, not elsewhere classified; R11.2 Nausea with vomiting, unspecified; E03.9 Hypothyroidism, unspecified; I25.10 Atherosclerotic heart disease of native coronary artery without angina pectoris; I10 Essential (primary) hypertension; Z79.899 Other long term (current) drug therapy; E78.5 Hyperlipidemia, unspecified; I77.1 Stricture of artery; Z20.822 Contact with and (suspected) exposure to COVID-19
CPT/HCPCS: G0378; 36415; 71045; 71275; 74174; 74176; 80053; 83690; 84443; 84484; 85025; 85610; 87507; 93005; 99285; C9803; J2405; J2543; Q9967; U0003; U0005

== ENCOUNTER 2022-12-01 10:49 | Emergency (ER) | payer MEDICARE, OTHER, SELFPAY ==
[2022-12-01] VITALS (8 sets, daily range): BP systolic 0–211; BP diastolic 0–98; PULSE 0–97; RESP 0–18; TEMP -17.7–0; O2SAT 0–100; BMI 29.2
--- NOTE | 2022-12-01 | ECG_ITS ---
APPROVED REPORT Exam: Resting ECG HR:104 bpm ECG Measurements Heart Rate 104 AXES MN 170 P 65 QRSd 93 QRS 53 QT 338 T 64 QTc 399 Conclusion SINUS TACHYCARDIA LEFT ATRIAL Abnormality NONSPECIFIC ST & T-WAVE ABNORMALITY ABNORMAL RHYTHM ECG INTERPRETATION BASED ON A DEFAULT AGE OF 41 YEARS UNCONFIRMED REPORT Electronically signed by : Eulogio Allen MD 12/02/2022 21:41:30
--- NOTE | 2022-12-01 10:52 | CT_ITS ---
FINAL REPORT TECHNIQUE: Thin section axial CT with IV contrast supplemented with multiplanar reconstruction under CT angiogram protocol. This study was performed with techniques to keep radiation doses as low as reasonably achievable (ALARA). Individualized dose reduction techniques using automated exposure control or adjustment of mA and/or kV according to the patient''s size were employed. NASCET criteria was utilized during interpretation. CLINICAL HISTORY: AMS code FINDINGS: Aortic arch: Arch shows no significant narrowing. Great vessel origins are widely patent. Right carotid: No significant stenosis is seen of the cervical common or internal carotid artery. Left carotid: No significant stenosis is seen of the cervical common or internal carotid artery. Vertebral: The vertebral arteries are codominant. No significant stenosis is present. Endotracheal tube is present. There is mild atelectasis in the right lung. IMPRESSION: No significant stenosis identified. Reviewed, Interpreted and Dictated by Topher Pendleton III, MD Transcribed by Kandis Lopez Authenticated and [facility]
--- NOTE | 2022-12-01 10:52 | CT_ITS ---
FINAL REPORT TECHNIQUE: Thin section axial CT with IV contrast supplemented with multiplanar reconstruction under CT angiogram protocol. 3-D reconstructions were performed. This study was performed with techniques to keep radiation doses as low as reasonably achievable (ALARA). Individualized dose reduction techniques using automated exposure control or adjustment of mA and/or kV according to the patient''s size were employed. CLINICAL HISTORY: AMS code FINDINGS: The distal vertebral, basilar and distal internal carotid arteries have an unremarkable appearance. No aneurysm is seen. Major intracranial vessels are patent without significant stenosis. IMPRESSION: No evidence of significant stenosis. Reviewed, Interpreted and Dictated by Topher Pendleton III, MD Transcribed by Kandis Lopez Authenticated and [facility]
--- NOTE | 2022-12-01 10:52 | CT_ITS ---
FINAL REPORT CLINICAL HISTORY: altered mental status code COMPARISON: 12/11/2021 FINDINGS: Axial images of the head were obtained without contrast. Coronal reformatted images were also obtained.This study was performed with techniques to keep radiation doses as low as reasonably achievable (ALARA). Individualized dose reduction techniques using automated exposure control or adjustment of mA and/or kV according to the patient''s size were employed. There is a large hematoma involving the midbrain and shirlene measuring up to 38 mm in maximum axial dimension. Finding is new since the previous. The hemorrhage extends into the 4th ventricle. Mild chronic ischemic changes are identified. There is an area of posterior right temporal encephalomalacia, stable. There is no evidence of shift of the midline structures. No abnormal extra axial fluid collection is identified. No skull abnormality is seen on the bone window images. IMPRESSION: Large hematoma involving the mid brain and shirlene extending into the 4th ventricle. Emergency room physician was notified of findings on 11/21/2022 at 12:31 p.m. Reviewed, Interpreted and Dictated by Topher Pendleton III, MD Transcribed by Kandis Lopez Authenticated and . [facility]
--- NOTE | 2022-12-01 10:57 | XR_ITS ---
FINAL REPORT CLINICAL HISTORY: post intubation COMPARISON: 02/13/2022 FINDINGS: SINGLE-VIEW CHEST The heart size is normal. The mediastinum is normal. The lungs are clear. Endotracheal tube tip terminates 2 cm above the prince. There is no pneumothorax. IMPRESSION: ET tube as above. Reviewed, Interpreted and Dictated by Topher Pendleton III, MD Transcribed by Kandis Lopez Authenticated and [facility]
--- NOTE | 2022-12-01 11:03 | PC.NURSE ---
courtesy cart given to family in consultation room
[2022-12-01 11:09] LABS: ABG Base Excess -4.7 mmol/L (-2.4-2.3); ABG Oxygen Saturation 100 % (90-100); ABG PH 7.22 mmol/L (7.35-7.45); ABG TCO2 24.7 mmhg (23-27)
[2022-12-01 11:10] LABS: Allen's Test ACCEPTABLE; Oxygen 100 %; PEEP 8; Source Right Radial; Tidal Volume 420; Vent Rate 18
--- NOTE | 2022-12-01 11:10 | PC.NURSE ---
reported to this nurse that the patient family has decide that if the patient were to arrest again that they do not want CPR or any other interventions done
--- NOTE | 2022-12-01 11:13 | HMH.EDGENADL ---
Discharge Plan Disposition Patient Disposition: Date/Time: 12/01/22 17:20 Clinical Impressions Clinical Impression: Acute CVA (cerebrovascular accident), Brainstem Discharge ED Provider: Shekhar Ibarra General Adult HPI General Stated complaint: unresponsive Time Seen by Provider: 12/01/22 13:30 History of Present Illness HPI narrative: Patient presents to the emergency department unresponsive. She was found by her daughter laying naked on the bed unresponsive. EMS was called. EMS started to give the patient assisted ventilation with a mask. She was brought to the emergency department. The daughter states that the last time she spoke with her was approximately 830 last evening. States that she was fine then. Denies any known recent illnesses. States that the patient was getting ready to go to work this morning. No other significant information is known except for cardiac history Related Data Home Medications Medication Instructions Recorded Confirmed aspirin 81 mg tablet,delayed 81 mg PO DAILY CAD 12/15/21 02/13/22 release (Adult Low Dose Aspirin) cholecalciferol (vitamin D3) 50 50 mcg PO DAILY supplement 12/15/21 02/13/22 mcg (2,000 unit) tablet (Vitamin D3) hydroxyurea 500 mg capsule 500 mg PO HS polycthemia vera 12/15/21 02/13/22 levothyroxine 88 mcg tablet 88 mcg PO DAILY thyroid 12/15/21 02/13/22 (Synthroid) metoprolol succinate 25 mg 25 tab PO DAILY High blood pressure 12/15/21 02/13/22 tablet,extended release 24 hr nitroglycerin 0.4 mg sublingual 0.4 mg PO TIDP PRN Chest Pain 12/15/21 02/14/22 tablet Allergies Allergy/AdvReac Type Severity Reaction Status Date / Time No Known Allergies Allergy Verified 12/15/21 09:02 [facility] Disclaimer: The information contained in this section may have been updated after the patient was seen, as this information can be updated by other users. 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 Unresponsive. Severe respiratory distress) Head Head exam: atraumatic and normocephalic Eye Eye exam: Present normal appearance and PERRL Respiratory Respiratory exam: Present other (Significant coarse and diminished bilateral breath sounds. Few scattered rales and rhonchi) Cardiovascular Cardiovascular exam: Present regular rate, normal rhythm and normal heart sounds Abdominal Exam Abdominal exam: Present soft and diminished bowel sounds Extremities Exam Extremities exam: Present normal inspection and full ROM Neurological Exam Neurological exam: Present other (GCS of 3) Skin Skin exam: Present warm and dry Medical Decision Making Medical Records Medical records reviewed: Yes I reviewed the patient's medical records. Maximino Inquiry Pt receiving controlled substance: No Maximino was queried for this patient: No Vital Signs: 12/01/22 11:01 12/01/22 10:50 12/01/22 11:29 Temperature Pulse Rate 97 H 62 Respiratory Rate 18 17 Blood Pressure 133/78 112/59 L Blood Pressure Mean 96 76 02 Sat by Pulse Oximetry 98 100 Oxygen Delivery Method Mechanical Ventilation 12/01/22 12:00 12/01/22 12:30 12/01/22 13:00 Temperature Pulse Rate 62 Respiratory Rate 18 18 18 Blood Pressure 128/53 L 133/55 L 134/56 L Blood Pressure Mean 83 79 82 02 Sat by Pulse Oximetry 100 Oxygen Delivery Method 12/01/22 17:18 Temperature 0 F L Pulse Rate 0 L Respiratory Rate 0 L Blood Pressure 0/0 L Blood Pressure Mean 02 Sat by Pulse Oximetry Oxygen Delivery Method Lab Data Lab results reviewed: Yes I reviewed the patien
--- NOTE | 2022-12-01 11:15 | PC.NURSE ---
Resp called with ABG results. Repeated and verified, notified . Advised resp to turn vent settings down at this time
--- NOTE | 2022-12-01 11:15 | PC.NURSE ---
León from pharmacy called they are making drip for patient.
--- NOTE | 2022-12-01 11:17 | PC.NURSE ---
Pt to CT. Aracelis RN to CT with patient
[2022-12-01 11:21] LABS: Chloride 97 mmol/L (98-107); Sodium 138 mmol/L (136-145)
[2022-12-01 11:24] LABS: Alanine Aminotransferase 46 U/L (12-78); Albumin Level 4.2 g/dl (3.5-5.0); Albumin/Globulin Ratio 1.3 (1.1-1.8); Alkaline Phosphatase 177 U/L (38-126); Aspartate Amino Transferase 83 U/L (14-36); Bilirubin,Total 1.4 mg/dl (0.2-1.3); Blood Urea Nitrogen 11 mg/dl (7-17); Carbon Dioxide 27 mmol/L (22.0-30.0); Creatinine Clearance Estimated 63 mL/min (50-200); Estimated Glomerular Filt Rate 82 ml/min (>60); GFR (African American) 100 ML/MIN (>60); Globulin 3.2 g/dL (1.3-3.2); Total Protein,Serum 7.4 g/dl (6.3-8.2)
[2022-12-01 11:25] LABS: Calcium 8.8 mg/dl (8.4-10.2); Glucose 251 mg/dl (74-100)
--- NOTE | 2022-12-01 11:25 | PC.NURSE ---
This DIVIDING MACHINE OPERATOR transported Pt to and from CT scan, Pt intubated BVM performed at 10-12 breaths per minute. Pt remained stable throughout duration of procedure.
[2022-12-01 11:34] LABS: Basophils # 0.5 K/mm3 (0-0.2); Eosinophils # 0.7 K/mm3 (0.0-0.4); Eosinophils % 2.9 % (0.1-12.0); Hematocrit 52.6 % (37.0-47.0); Hemoglobin 15.4 g/dL (12.2-16.2); Lymphocytes # 6.1 K/mm3 (0.7-4.5); Lymphocytes % 24.9 % (10-50); Mean Corpuscular HGB Conc 29.3 g/dL (31.8-35.4); Mean Corpuscular Hemoglobin 26.8 pg (27.0-31.2); Mean Corpuscular Volume 91.4 fl (81-99); Mean Platelet Volume 10.9 fl (7.4-10.4); Monocytes # 1.3 K/mm3 (0.1-1.0); Monocytes % 5.3 % (1.7-9.3); Neutrophils # 15.9 K/mm3 (1.8-7.8); Neutrophils % 64.9 % (37.0-80.0); Platelet Count 826 K/mm3 (142-424); Red Blood Count 5.75 M/mm3 (4.20-5.40); Red Cell Distribution Width 19.1 % (11.5-17.5); White Blood Count 24.6 K/mm3 (4.8-10.8)
--- NOTE | 2022-12-01 11:37 | PC.NURSE ---
family at bedside, er md speaking with family
[2022-12-01 11:44] LABS: MANUAL DIFFERENTIAL MANUAL DIFFERENTIAL (MANUAL DIFF)
[2022-12-01 11:55] LABS: Troponin I < 0.01 ng/ml (0.00-0.034)
--- NOTE | 2022-12-01 12:16 | PC.NURSE ---
MD came out after speaking with family and advised they were waiting on a family member to come see her and then the plan was to extubate her due to her diagnosis and prognosis. Family provided with privacy at this time.
[2022-12-01 12:34] LABS: Eosinophils % 2 % (0-3); Lymphocytes % 21 % (10-50); Monocytes % 9 % (2-9); Neutrophils % 68 % (42-76); Platelet Estimate Marked Increase; RBC Morphology Normal; Total Cells Counted 100
--- NOTE | 2022-12-01 12:42 | PC.NURSE ---
spoke with Carri with [facility] who gave approval to withdrawl care at this time and to call back when the patient has cardiac .
--- NOTE | 2022-12-01 13:07 | PC.NURSE ---
family remains at bedside
--- NOTE | 2022-12-01 14:20 | PC.NURSE ---
gave water to family member wasnt any on courtesy cart
[2022-12-01 14:44] LABS: Procalcitonin 0.083 ng/mL (0.0-2.0)
--- NOTE | 2022-12-01 14:56 | PC.NURSE ---
more of family arrived. no needs reported at this time
--- NOTE | 2022-12-01 15:30 | PC.NURSE ---
family advised they are ready for extubation. notified.
--- NOTE | 2022-12-01 15:32 | PC.NURSE ---
and TRACY Ramirez at bedside for extubation.
--- NOTE | 2022-12-01 15:45 | PC.NURSE ---
on assessment after extubation. pt has agonal breathing with copious secretions. pt suctioned and MD ordered 100mcg of fentanyl at this time to help keep pt comfortable.
--- NOTE | 2022-12-01 15:51 | PC.NURSE ---
at bedside to evaluate pt status. pronounced time of [id number]
--- NOTE | 2022-12-01 16:15 | PC.NURSE ---
corner called at this time
--- NOTE | 2022-12-01 16:51 | PC.NURSE ---
Sharon arrived to pt bedside at this time.
--- NOTE | 2022-12-01 18:05 | PC.NURSE ---
Corner called at this time
--- NOTE | 2023-03-04 11:58 | PC.NURSE ---
vascular at bedside for echo.
[2023-03-14 10:12] LABS: POC Glucose,Bedside 254 (70-110)
== END 2022-12-01 17:20 | disposition expired ==
PROVIDERS: Emergency Provider Emergency Medicine
DX: I63.9 Cerebral infarction, unspecified (principal); R00.0 Tachycardia, unspecified; Z66 Do not resuscitate
CPT/HCPCS: 31500; 70450; 70496; 70498; 71045; 80053; 82803; 82962; 84145; 84484; 85007; 85025; 87070; 87077; 87205; 92950; 93005; 96361; 96374; 96375; 96376; 99291; 99292; Q9967